=== PATIENT | female | born 2005 | race Two or more races ===

== ENCOUNTER 2025-09-26 18:58 | Emergency (ER) | payer MEDICAID ==
[~2025-09-26] VITALS: Ht 167.6 cm; Wt 60.0 kg
[2025-09-26 19:03] VITALS: O2SAT 100
[2025-09-26 21:55] LABS: BASOPHILS % 0.3 % (0.0-2.0); EOSINOPHILS % 1.5 % (0.0-5.0); HEMATOCRIT. 38.9 % (36.0-48.0); HEMOGLOBIN. 12.9 g/dL (12.0-16.0); LYMPHOCYTES % 43.6 % (20.0-50.0); MEAN PLATELET VOLUME 7.9 fl (7.4-10.4); MONOCYTES % 6.1 % (2.0-8.0); NEUTROPHILS % 48.5 % (40.0-76.0); PLATELET 285 x1000/uL (130-400); RED BLOOD CELL COUNT 4.38 mill/uL (4.2-5.4); RED CELL DISTRIBUTION WIDTH 14.0 % (11.6-14.6)
[2025-09-26 22:01] LABS: HCG SCREEN NEGATIVE
[2025-09-26 22:11] VITALS: TEMP 36.7; O2SAT 100
[2025-09-26 22:12] LABS: CREATININE 0.8 mg/dL (0.6-1.0); UREA NITROGEN BLOOD 9 mg/dL (9-23)
[2025-09-26 22:13] VITALS: BP 105/67; PULSE 83; RESP 18
[2025-09-26 22:13] LABS: ASPARTATE AMINOTRANSFERASE 13 IU/L (<34)
[2025-09-26] MEDS: KETOROLAC 30MG/ML VIAL IM ONE (22:13)
[2025-09-26 22:14] LABS: BILIRUBIN DIRECT 0.1 mg/dL (<=3.0); BILIRUBIN TOTAL 0.4 mg/dL (0.1-1.0); PROTEIN TOTAL 7.5 g/dL (6.0-8.3)
[2025-09-26] MEDS ORDERED: IBUP-2028 MT (22:20)
== END 2025-09-26 22:41 | disposition home or self-care (01) ==
LOC: ER 19:16
DX: N92.0 Excessive and frequent menstruation with regular cycle (principal); F10.90 Alcohol use, unspecified, uncomplicated; Z79.899 Other long term (current) drug therapy; Y90.9 Presence of alcohol in blood, level not specified
CPT/HCPCS: 99285; 76830; 76856; 80076; 80048; 81025; 84703; 85025; 86850; 86900; 86901; 36415; 96372; J1885